=== PATIENT | male | born 1980 | race Caucasian/White ===

== ENCOUNTER 2019-09-17 07:14 | Emergency (ER) | payer OTHER ==
[~2019-09-17] VITALS: Ht 167.6 cm; Wt 85.3 kg
[2019-09-17] MEDS ORDERED: NORCO 5-325 TA1 EAC1 PO (11:21)
[2019-09-17 11:40] VITALS: BP 135/77
== END 2019-09-17 11:41 | disposition home or self-care (01) ==
LOC: ER 07:14
DX: S63.502A Unspecified sprain of left wrist, initial encounter (principal); S50.811A Abrasion of right forearm, initial encounter; S70.211A Abrasion, right hip, initial encounter; V29.88XA Motorcycle rider (driver) (passenger) injured in other specified transport accidents, initial encounter; Y93.89 Activity, other specified; Y92.89 Other specified places as the place of occurrence of the external cause; Y99.8 Other external cause status